=== PATIENT | male | born 1980 | race Hispanic/Latino ===

== ENCOUNTER 2019-09-15 17:00 | Emergency (ER) | payer OTHER ==
[2019-09-15 18:13] LABS: BASOPHILS % (AUTO) 0.8 % (0.0-5.0); EOSINOPHILS % (AUTO) 1.6 % (0.0-8.0); HEMATOCRIT 42.6 % (42-54); LYMPHOCYTES % (AUTO) 35.2 % (21.0-51.0); MEAN CORPUSCULAR HEMOGLOBIN 30.6 pg (27.0-33.0); MEAN CORPUSCULAR HGB CONC 34.5 g/dL (32.0-36.0); MEAN CORPUSCULAR VOLUME 88.6 fL (79-99); MONOCYTES % (AUTO) 5.4 % (3.0-13.0); NEUTROPHILS % (AUTO) 56.8 % (40.0-77.0); PLATELET COUNT (AUTO) 391 K/uL (130-400); RED BLOOD CELL COUNT(AUTO) 4.81 MIL/uL (4.50-6.20); RED CELL DISTRIBUTION WIDTH 12.3 % (11.0-15.5); WHITE BLOOD COUNT (AUTO) 8.8 K/uL (4.8-10.8)
[2019-09-15 18:33] LABS: CREATININE 0.9 mg/dL (0.5-1.5); POTASSIUM 3.3 mmol/L (3.5-5.1)
[2019-09-15 18:52] LABS: BILIRUBIN,TOTAL 0.3 mg/dL (0.2-1.0)
== END 2019-09-15 19:34 | disposition home or self-care (01) ==
LOC: EDH 17:00
DX: R42 Dizziness and giddiness (principal)
CPT/HCPCS: 36415; 80053; 84484; 85025; 93005

== ENCOUNTER 2020-03-09 23:25 | Emergency (ER) | payer OTHER ==
[2020-03-09 23:49] LABS: BASOPHILS % (AUTO) 0.7 % (0.0-5.0); EOSINOPHILS % (AUTO) 3.1 % (0.0-8.0); HEMATOCRIT 40.1 % (42-54); LYMPHOCYTES % (AUTO) 45.8 % (21.0-51.0); MEAN CORPUSCULAR HGB CONC 34.2 g/dL (32.0-36.0); MEAN CORPUSCULAR VOLUME 87.9 fL (79-99); MONOCYTES % (AUTO) 6.8 % (3.0-13.0); NEUTROPHILS % (AUTO) 43.4 % (40.0-77.0); PLATELET COUNT (AUTO) 367 K/uL (130-400); RED BLOOD CELL COUNT(AUTO) 4.56 MIL/uL (4.50-6.20); RED CELL DISTRIBUTION WIDTH 12.5 % (11.0-15.5)
[2020-03-10 00:01] LABS: CREATININE 0.9 mg/dL (0.5-1.5); POTASSIUM 3.5 mmol/L (3.5-5.1)
[2020-03-10 00:07] LABS: ALBUMIN 3.9 g/dL (3.5-5.0); BILIRUBIN,TOTAL 0.4 mg/dL (0.2-1.0); TOTAL PROTEIN, SERUM 7.8 g/dL (6.0-8.3)
[2020-03-10] MEDS ORDERED: METOCLOPRAMIDE 10 MG/2 ML VIAL ONE (01:06)
[2020-03-10] MEDS ORDERED: ONDANSETRON HCL 4 MG/2 ML VIAL ONE ×2 (01:06→01:15)
[2020-03-10] MEDS ORDERED: PANTOPRAZOLE 40 MG/VIAL ONE ×2 (01:07→01:15)
[2020-03-10] MEDS ORDERED: FAMOTIDINE/PF 20 MG/2 ML VIAL IV ONE ×2 (01:07→01:15)
[2020-03-10] MEDS ORDERED: ASPIRIN 325MG EC TAB 325 MG TABLET.DR PO ONE (01:08)
[2020-03-10 01:13] LABS: INR 0.99 (0.85-1.15); PROTHROMBIN TIME 10.6 SEC (9.6-11.6)
[2020-03-10 01:14] LABS: PARTIAL THROMBOPLASTIN TIME 32.3 SEC (26.3-35.5)
[2020-03-10 01:27] LABS: RAPID GROUP A STREP NEGATIVE (NEGATIVE)
[2020-03-10 02:17] LABS: AMPHET/METH SCREEN,URINE NEGATIVE (NEGATIVE); BARBITURATE SCREEN, URINE NEGATIVE (NEGATIVE); BENZODIAZEPINES SCREEN,URINE NEGATIVE (NEGATIVE); CANNABINOID SCREEN,URINE NEGATIVE (NEGATIVE); COCAINE SCREEN,URINE NEGATIVE (NEGATIVE); OPIATE SCREEN,URINE NEGATIVE (NEGATIVE); PHENCYCLIDINE SCREEN,URINE NEGATIVE (NEGATIVE)
== END 2020-03-10 01:46 | disposition home or self-care (01) ==
LOC: EDH 23:25
DX: K29.00 Acute gastritis without bleeding (principal); Z20.828 Contact with and (suspected) exposure to other viral communicable diseases; Z87.891 Personal history of nicotine dependence
CPT/HCPCS: 36415 ×2; 71045; 80053; 80305; 82550; 83605; 83690; 84484; 85025; 85610; 85730; 87040 ×2; 87426; 87804 ×2; 87880; 93005; 96374; 96375; 99285; C9113 ×2; J2405 ×2; J2765; J3490 ×2; U0003

== ENCOUNTER 2020-04-17 23:45 | Emergency (ER) | payer OTHER ==
[2020-04-18] MEDS ORDERED: PANTOPRAZOLE 40 MG/VIAL ONE (01:21)
[2020-04-18] MEDS ORDERED: LIDOCAINE HCL 2% VISCOUS 15 ML UDCUP ONE (01:22)
[2020-04-18] MEDS ORDERED: MAGNESIUM HYDROXIDE 30 ML/UDCUP ONE (01:22)
[2020-04-18 01:25] LABS: HEMATOCRIT 40.8 % (42-54); MEAN CORPUSCULAR HEMOGLOBIN 30.6 pg (27.0-33.0); MEAN CORPUSCULAR HGB CONC 34.3 g/dL (32.0-36.0); MEAN CORPUSCULAR VOLUME 89.3 fL (79-99); PLATELET COUNT (AUTO) 414 K/uL (130-400); RED BLOOD CELL COUNT(AUTO) 4.57 MIL/uL (4.50-6.20); RED CELL DISTRIBUTION WIDTH 12.6 % (11.0-15.5); WHITE BLOOD COUNT (AUTO) 12.2 K/uL (4.8-10.8)
[2020-04-18 01:37] LABS: BASOPHILS % (AUTO) 0.7 % (0.0-5.0); CREATININE 0.8 mg/dL (0.5-1.5); EOSINOPHILS % (AUTO) 0.1 % (0.0-8.0); LYMPHOCYTES % (AUTO) 11.1 % (21.0-51.0); MONOCYTES % (AUTO) 3.8 % (3.0-13.0); POTASSIUM 3.8 mmol/L (3.5-5.1)
[2020-04-18 01:42] LABS: ALBUMIN 4.4 g/dL (3.5-5.0); BILIRUBIN,TOTAL 1.1 mg/dL (0.2-1.0); TOTAL PROTEIN, SERUM 8.8 g/dL (6.0-8.3)
== END 2020-04-18 02:13 | disposition home or self-care (01) ==
LOC: EDH 23:45
DX: K29.00 Acute gastritis without bleeding (principal); Z79.899 Other long term (current) drug therapy
CPT/HCPCS: 36415; 80053; 84484; 85025; 93005; 96374; 99284; C9113

== ENCOUNTER 2020-10-19 21:53 | Emergency (ER) | payer OTHER ==
[~2020-10-19] VITALS: Ht 162.6 cm; Wt 54.4 kg
[2020-10-19 21:57] VITALS: BP 146/99
[2020-10-19] MEDS ORDERED: OMEP20CA12 PO (22:02)
[2020-10-19 22:13] LABS: HEMATOCRIT 39.4 % (42-54); MEAN CORPUSCULAR HEMOGLOBIN 29.9 pg (27.0-33.0); MEAN CORPUSCULAR HGB CONC 33.8 g/dL (32.0-36.0); MEAN CORPUSCULAR VOLUME 88.5 fL (79-99); RED BLOOD CELL COUNT(AUTO) 4.45 MIL/uL (4.50-6.20); RED CELL DISTRIBUTION WIDTH 12.7 % (11.0-15.5); WHITE BLOOD COUNT (AUTO) 7.8 K/uL (4.8-10.8)
[2020-10-19 22:23] LABS: CREATININE 0.7 mg/dL (0.5-1.5); POTASSIUM 3.6 mmol/L (3.5-5.1)
[2020-10-19 22:28] LABS: BILIRUBIN,TOTAL 0.7 mg/dL (0.2-1.0)
[2020-10-19] MEDS ORDERED: FAMOTIDINE 20MG VIAL IV ONE (22:30)
[2020-10-19] MEDS ORDERED: ONDANSETRON 4MG INJ IVP ONE (22:30)
[2020-10-19] MEDS ORDERED: PANTOPRAZOLE 40 MG/VIAL IVP ONE (22:30)
[2020-10-19] MEDS ORDERED: METOCLOPRAMIDE 10 MG/2 ML VIAL IVP ONE (22:30)
[2020-10-20] MEDS ORDERED: MELO7.5T12 PO (00:09)
[2020-10-20] MEDS ORDERED: CYCL10TA7 PO (00:09)
[2020-10-20] MEDS ORDERED: METO-296 PO (00:09)
[2020-10-20 00:13] VITALS: BP 105/55
== END 2020-10-20 00:22 | disposition home or self-care (01) ==
LOC: EDH 21:53
DX: R07.89 Other chest pain (principal); R42 Dizziness and giddiness; K21.9 Gastro-esophageal reflux disease without esophagitis; J45.909 Unspecified asthma, uncomplicated; Z79.1 Long term (current) use of non-steroidal anti-inflammatories (NSAID); Z79.899 Other long term (current) drug therapy
CPT/HCPCS: 36415; 71046; 80053; 83690; 84484; 85027; 93005; 96374; 96375; 99285; C9113; J2405; J2765; J3490

== ENCOUNTER 2020-11-27 20:37 | Emergency (ER) | payer SELFPAY ==
[~2020-11-27] VITALS: Ht 162.6 cm; Wt 52.2 kg
[~2020-11-27 20:37] MED LIST: CYCL10TA7 PO; MELO7.5T12 PO; METO-296 PO; OMEP20CA12 PO
[2020-11-27 20:42] VITALS: BP 115/78
[2020-11-27] MEDS ORDERED: TETANUS/DIPHTHERIA TOXOID [ADULT] 0.5 ML VIAL IM ONE ×2 (21:30→21:49)
[2020-11-27] MEDS ORDERED: CEPHALEXIN 500 MG CAPSULE PO ONE (21:30)
[2020-11-27] MEDS ORDERED: LIDOCAINE HCL 1% 20 ML VIAL INJ SCH (21:30)
[2020-11-27] MEDS ORDERED: CEPHALEXIN 500 MG CAPSULE ONE (21:47)
[2020-11-27] MEDS ORDERED: CEPH250 PO (21:49)
[2020-11-27] MEDS ORDERED: NEOMY SULF/BACITRA/POLYMYXIN B 1 EACH PACKET TP ONE (22:00)
[2020-11-27 22:01] VITALS: BP 118/80
== END 2020-11-27 22:06 | disposition home or self-care (01) ==
LOC: EDH 20:37
DX: S61.412A Laceration without foreign body of left hand, initial encounter (principal); Z79.1 Long term (current) use of non-steroidal anti-inflammatories (NSAID); Z79.899 Other long term (current) drug therapy; F17.200 Nicotine dependence, unspecified, uncomplicated; W26.0XXA Contact with knife, initial encounter; Y93.89 Activity, other specified; Y92.89 Other specified places as the place of occurrence of the external cause; Y99.8 Other external cause status
CPT/HCPCS: 12002; 90471; 90714

== ENCOUNTER 2022-07-21 14:49 | Emergency (ER) | payer BC ==
[~2022-07-21] VITALS: Ht 160 cm; Wt 56.7 kg
[~2022-07-21 14:49] MED LIST changes: +CEPH250 PO; +CYCL-309 PO; -CYCL10TA7 PO
[2022-07-21 15:29] LABS: MEAN CORPUSCULAR HEMOGLOBIN 30.2 pg (27.0-33.0); MEAN CORPUSCULAR VOLUME 86.4 fL (79-99); RED BLOOD CELL COUNT(AUTO) 4.63 MIL/uL (4.50-6.20); RED CELL DISTRIBUTION WIDTH 12.5 % (11.0-15.5); WHITE BLOOD COUNT (AUTO) 8.3 K/uL (4.8-10.8)
[2022-07-21 15:33] LABS: APPEARANCE,URINE CLEAR (CLEAR); BILIRUBIN,URINE NEGATIVE (NEGATIVE); COLOR,URINE LIGHT-YELLOW (YELLOW); GLUCOSE, URINE (UA) NEGATIVE (NEGATIVE); KETONES,URINE 5 mg/dL (NEGATIVE); LEUKOCYTE ESTERASE ,URINE NEGATIVE Leu/uL (NEGATIVE); NITRATE,URINE NEGATIVE (NEGATIVE); OCCULT BLOOD,URINE SMALL (NEGATIVE); PH,URINE 6.5 (5.0-8.0); PROTEIN,URINE NEGATIVE (NEGATIVE); UROBILINOGEN,URINE 0.2 mg/dL (0.2-1.0)
[2022-07-21 15:39] LABS: WBC,URINE 0-1 /HPF (0-1)
[2022-07-21 15:41] LABS: AMPHET/METH SCREEN,URINE NEGATIVE (NEGATIVE); BARBITURATE SCREEN, URINE NEGATIVE (NEGATIVE); BENZODIAZEPINES SCREEN,URINE NEGATIVE (NEGATIVE); CANNABINOID SCREEN,URINE NEGATIVE (NEGATIVE); COCAINE SCREEN,URINE NEGATIVE (NEGATIVE); OPIATE SCREEN,URINE NEGATIVE (NEGATIVE); PHENCYCLIDINE SCREEN,URINE NEGATIVE (NEGATIVE)
[2022-07-21 15:45] LABS: CREATININE 0.8 mg/dL (0.5-1.5); POTASSIUM 3.5 mmol/L (3.5-5.1)
[2022-07-21] MEDS ORDERED: IBUP-2070 PO (16:23)
[2022-07-21 16:36] VITALS: BP 144/86
== END 2022-07-21 16:35 | disposition home or self-care (01) ==
LOC: EDH 14:49
DX: R51.9 Headache, unspecified (principal); F17.200 Nicotine dependence, unspecified, uncomplicated; Z79.1 Long term (current) use of non-steroidal anti-inflammatories (NSAID)
CPT/HCPCS: 36415; 80053; 80305; 81001; 85027

== ENCOUNTER 2023-05-07 00:25 | Emergency (ER) | payer BC ==
[~2023-05-07] VITALS: Ht 162.6 cm; Wt 54.4 kg
[~2023-05-07 00:25] MED LIST changes: +IBUP-2070 PO
[2023-05-07 00:39] LABS: BASOPHILS # (AUTO) 0.07 K/uL (0.00-0.20); BASOPHILS % (AUTO) 0.5 % (0.0-5.0); EOSINOPHILS # (AUTO) 0.16 K/uL (0.00-0.70); EOSINOPHILS % (AUTO) 1.1 % (0.0-8.0); HEMATOCRIT 40.5 % (42-54); IMMATURE GRANULOCYTE ABSOLUTE 0.05 K/uL (0-1); LYMPHOCYTES # (AUTO) 3.1 K/uL (1.0-4.8); LYMPHOCYTES % (AUTO) 21.9 % (21.0-51.0); MEAN CORPUSCULAR HEMOGLOBIN 30.3 pg (27.0-33.0); MEAN CORPUSCULAR HGB CONC 34.1 g/dL (32.0-36.0); MONOCYTES # (AUTO) 0.8 K/uL (0.1-1.0); MONOCYTES % (AUTO) 5.3 % (3.0-13.0); NEUTROPHILS % (AUTO) 70.8 % (40.0-77.0); PLATELET COUNT (AUTO) 344 K/uL (130-400); RED BLOOD CELL COUNT(AUTO) 4.55 MIL/uL (4.50-6.20); RED CELL DISTRIBUTION WIDTH 12.4 % (11.0-15.5); WHITE BLOOD COUNT (AUTO) 14.1 K/uL (4.8-10.8)
[2023-05-07 00:50] LABS: CREATININE 0.9 mg/dL (0.5-1.5); POTASSIUM 3.5 mmol/L (3.5-5.1)
[2023-05-07 00:55] LABS: ALBUMIN 4.1 g/dL (3.5-5.0); BILIRUBIN,TOTAL 0.6 mg/dL (0.2-1.0)
[2023-05-07] MEDS: HYDROXYZINE 25 MG TABLET PO ONE (01:24)
[2023-05-07] MEDS: ASPIRIN 325MG TAB PO ONE (01:24)
[2023-05-07] MEDS ORDERED: HYDR50CA50 PO (02:45)
[2023-05-07] MEDS: METOPROLOL TARTRATE 1 MG/ML 5ML VIAL IV ONE (02:46)
[2023-05-07 03:00] VITALS: BP 114/69; PULSE 68; RESP 18; O2SAT 99
== END 2023-05-07 03:01 | disposition home or self-care (01) ==
LOC: EDH 00:25
DX: F41.9 Anxiety disorder, unspecified (principal)
CPT/HCPCS: 99284; 71045; 84484 ×3; 80053; 85025; 36415; 93005 ×2; J3490

== ENCOUNTER 2023-09-26 12:40 | Emergency (ER) | payer BC ==
[~2023-09-26] VITALS: Ht 162.6 cm; Wt 54.4 kg
[~2023-09-26 12:40] MED LIST changes: +HYDR50CA50 PO
[2023-09-26 13:45] LABS: HEMATOCRIT 41.3 % (42-54); MEAN CORPUSCULAR HEMOGLOBIN 30.2 pg (27.0-33.0); MEAN CORPUSCULAR HGB CONC 34.4 g/dL (32.0-36.0); MEAN CORPUSCULAR VOLUME 87.9 fL (79-99); RED BLOOD CELL COUNT(AUTO) 4.7 MIL/uL (4.50-6.20); RED CELL DISTRIBUTION WIDTH 12.7 % (11.0-15.5); WHITE BLOOD COUNT (AUTO) 10.2 K/uL (4.8-10.8)
[2023-09-26 14:10] LABS: CREATININE 0.9 mg/dL (0.5-1.3); POTASSIUM 3.8 mmol/L (3.5-5.1)
[2023-09-26 14:45] VITALS: BP 142/85; PULSE 66; RESP 14; O2SAT 100
[2023-09-26 15:03] LABS: AMPHET/METH SCREEN,URINE NEGATIVE (NEGATIVE); BARBITURATE SCREEN, URINE NEGATIVE (NEGATIVE); BENZODIAZEPINES SCREEN,URINE NEGATIVE (NEGATIVE); CANNABINOID SCREEN,URINE NEGATIVE (NEGATIVE); COCAINE SCREEN,URINE NEGATIVE (NEGATIVE); OPIATE SCREEN,URINE NEGATIVE (NEGATIVE); PHENCYCLIDINE SCREEN,URINE NEGATIVE (NEGATIVE)
== END 2023-09-26 15:02 | disposition home or self-care (01) ==
LOC: EDH 12:40
DX: R00.2 Palpitations (principal); R42 Dizziness and giddiness; R25.1 Tremor, unspecified; F41.9 Anxiety disorder, unspecified; F17.200 Nicotine dependence, unspecified, uncomplicated; Z79.899 Other long term (current) drug therapy; Z79.2 Long term (current) use of antibiotics; Z98.890 Other specified postprocedural states
CPT/HCPCS: 36415; 71045; 80048; 80305; 84484; 85027; 93005

== ENCOUNTER 2024-04-12 12:11 | Emergency (ER) | payer BC ==
[~2024-04-12] VITALS: Ht 162.6 cm; Wt 54.4 kg
[2024-04-12] MEDS: mecliZINE HCL 25 MG TABLET PO STA (13:18)
[2024-04-12 13:20] LABS: BASOPHILS # (AUTO) 0.04 K/uL (0.00-0.20); BASOPHILS % (AUTO) 0.5 % (0.0-5.0); EOSINOPHILS # (AUTO) 0.08 K/uL (0.00-0.70); EOSINOPHILS % (AUTO) 1.1 % (0.0-8.0); HEMATOCRIT 41.5 % (42-54); IMMATURE GRANULOCYTE ABSOLUTE 0.02 K/uL (0-1); LYMPHOCYTES # (AUTO) 2.2 K/uL (1.0-4.8); LYMPHOCYTES % (AUTO) 28.8 % (21.0-51.0); MEAN CORPUSCULAR HEMOGLOBIN 30.5 pg (27.0-33.0); MEAN CORPUSCULAR VOLUME 89.6 fL (79-99); MONOCYTES # (AUTO) 0.5 K/uL (0.1-1.0); MONOCYTES % (AUTO) 6.6 % (3.0-13.0); NEUTROPHILS # (AUTO) 4.7 K/uL (1.8-7.7); NEUTROPHILS % (AUTO) 62.7 % (40.0-77.0); PLATELET COUNT (AUTO) 367 K/uL (130-400); RED BLOOD CELL COUNT(AUTO) 4.63 MIL/uL (4.50-6.20); RED CELL DISTRIBUTION WIDTH 13.1 % (11.0-15.5); WHITE BLOOD COUNT (AUTO) 7.5 K/uL (4.8-10.8)
[2024-04-12] MEDS: 0.9%NACL 1000ML 1,000 ML IV STA (13:22)
[2024-04-12 13:29] LABS: CREATININE 0.7 mg/dL (0.5-1.3); POTASSIUM 3.4 mmol/L (3.5-5.1)
[2024-04-12 13:42] LABS: AMPHET/METH SCREEN,URINE NEGATIVE (NEGATIVE); BARBITURATE SCREEN, URINE NEGATIVE (NEGATIVE); BENZODIAZEPINES SCREEN,URINE NEGATIVE (NEGATIVE); CANNABINOID SCREEN,URINE NEGATIVE (NEGATIVE); COCAINE SCREEN,URINE NEGATIVE (NEGATIVE); OPIATE SCREEN,URINE NEGATIVE (NEGATIVE); PHENCYCLIDINE SCREEN,URINE NEGATIVE (NEGATIVE)
[2024-04-12] MEDS ORDERED: MECL-302 PO (13:54)
--- NOTE | 2024-04-12 13:56 | ERN ---
ED Note History of Present Illness Stated Complaint: DIIZZYNESS,NAUSEA Chief Complaint: Dizzy/Light Headed Time Seen by MD: 12:16 Time Seen by Midlevel: 12:20 Dictation: 33-year-old male with no past medical history coming in with complaining of dizziness and feeling lightheaded that started at 6:00 a.m.. Patient states he has been sick recently for cough congestion that was two weeks ago with states it is slowly getting better. Denies having any fevers, nausea, vomiting, chest pain or chest discomfort. Denies having any numbness, weakness, tingling. Allergies: Coded Allergies: No Known Drug Allergies (Unverified Allergy, Unknown, 10/19/20) Home Meds Active Scripts Hydroxyzine Pamoate (Hydroxyzine Pamoate) 50 Mg Capsule, 50 MG PO QIDP PRN for ANXIETY/AGITATION, #40 CAP 2 Refills Prov:HSERWIN WANG Sr., MD 05/07/23 Ibuprofen (Ibuprofen) 600 Mg Tablet, 600 MG PO Q6H PRN for PAIN, #30 TAB Prov:MARY BRITO MD 07/21/22 Cephalexin Monohydrate (Keflex) 250 Mg Cap, 250 MG PO BID for 7 Days, #14 CAP 0 Refills Prov:VITO LEAL MD 11/27/20 Metoclopramide HCl (Reglan) 10 Mg Tablet, 10 MG PO TIDP, #20 TAB 0 Refills Prov:VITO LEAL MD 10/20/20 Meloxicam (Mobic) 7.5 Mg Tablet, 7.5 MG PO DAILY, #10 TAB 0 Refills Prov:VITO LEAL MD 10/20/20 Cyclobenzaprine HCl (Cyclobenzaprine HCl) 10 Mg Tablet, 10 MG PO TIDP, #20 TAB 0 Refills Prov:VITO LEAL MD 10/20/20 Reported Medications Omeprazole (Omeprazole) 20 Mg Capsule.dr, 20 MG PO DAILY, CAP 10/19/20 Past Medical History Past Medical History: Anxiety Additional Past Medical Hx: GASTRITIS, HEART MURMUR A CHILD Surgical History: Other Surgical History Other: NASAL SURGERY A CHILD 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, ETOH Review of System Dictation Constitutional: Negative for fever,chills, and weight loss Eyes: Negative for injury, pain,redness, and discharge ENT: Negative for injury,pain or swelling Cardiovascular: Negative for chest pain, palpitations, and edema Respiratory: Negative for shortness of breath, cough, and wheezing, Abdomen/GI: Negative for abdominal pain, nausea, vomiting, diarrhea, and constipation Back: Negative for injury and pain : Negative for injury, bleeding and discharge MS/Extremity: Negative for injury and deformity Skin: Negative for rash, and discoloration Neuro: Negative for headache, weakness, numbness, tingling, and seizure complaining of dizziness is slowly improving Psych: Negative for suicide ideation, homicidal ideation, and hallucinations Review of Systems: was completed Initial Vital Sign VS Vital Signs Date Time Temp Pulse Resp B/P (MAP) Pulse Ox O2 Delivery O2 Flow Rate FiO2 04/12/24 12:32 98.2 70 20 122/86 99 Room Air Physical Exam Dictation General: awake, alert, NAD Head/Face: Normocephalic, atraumatic Eyes: PERRL, EOMI, vision at baseline ENT: oral cavity clear, TMs clear, no signs of infection Neck: Trachea midline, supple, no nuchal rigidity Cardiovascular: RRR, normal S1/S2, No MRGs, no JVD Respiratory: CTAB, no respiratory distress, No rales or wheezes Abdomen: Soft, non-tender, non-distended, normal bowel sounds, no guarding or rebound. Skin: Warm, dry, normal turgor, no rash MS/Extremity: Pulses equal, no cyanosis, neurovascular intact, FROM Neuro: COAx4, GCS 15, strength 5/5, CN 2-12 intact, normal cerebellar exam, normal gait, Psych: Normal behavior, mood, and affect normal Results (Laboratory/Radiology) Laboratory/Radiology Laboratory Tests Test 04/12/24 13:10 04/12/24 13:11 Urine Opiates Screen NEGATIVE (NEGATIVE) Urine Barbiturates Screen NEGATIVE (NEGATIVE) Urine Phencyclidine Screen NEGATIVE (NEGATIVE) Urine Amphetamines Screen NEGATIVE (NEGATIVE) Urine Benzodiazepines Screen NEGATIVE (NEGATIVE) Urine Cocaine Screen NEGATIVE (NEGATIVE) Urine Marijuana (THC) Screen NEGATIVE (NEGATIVE) White Blood Count 7.5 K/uL (4.8-10.8) Red Blood Count 4.63 MIL/uL (4.50-6.20) Hemoglobin 14.1 g/dL (14.0-18.0) Hematocrit 41.5 % (42-54) L Mean Corpuscular Volume 89.6 fL (79-99) Mean Corpuscular Hemoglobin 30.5 pg (27.0-33.0) Mean Corpuscular Hemoglobin Concent 34.0 g/dL (32.0-36.0) Red Cell Distribution Width 13.1 % (11.0-15.5) Platelet Count 367 K/uL (130-400) Mean Platelet Volume 8.5 fL (7.5-10.5) Immature Granulocyte % (Auto) 0.3 % (0-1) Neutrophils (%) (Auto) 62.7 % (40.0-77.0) Lymphocytes (%) (Auto) 28.8 % (21.0-51.0) Monocytes (%) (Auto) 6.6 % (3.0-13.0) Eosinophils (%) (Auto) 1.1 % (0.0-8.0) Basophils (%) (Auto) 0.5 % (0.0-5.0) Neutrophils # (Auto) 4.7 K/uL (1.8-7.7) Lymphocytes # (Auto) 2.2 K/uL (1.0-4.8) Monocytes # (Auto) 0.5 K/uL (0.1-1.0) Eosinophils # (Auto) 0.08 K/uL (0.00-0.70) Basophils # (Auto) 0.04 K/uL (0.00-0.20) Absolute Immature Granulocyte (auto 0.02 K/uL (0-1) Nucleated Red Blood Cells 0.0 % (0.0-0.19) Sodium Level 137 mmol/L (136-145) Potassium Level 3.4 mmol/L (3.5-5.1) L Chloride Level 100 mmol/L (101-111) L Carbon Dioxide Level 30 mmol/L (21-32) Blood Urea Nitrogen 10 mg/dL (7-18) Creatinine 0.7 mg/dL (0.5-1.3) Glomerular Filtration Rate Calc 117 mL/min (>90) Random Glucose 91 mg/dL (70-105) Total Calcium 8.6 mg/dL (8.5-10.1) Troponin I High Sensitivity 12 ng/L (4-75) Labs Reviewed?: Yes EKG Comment: EKG read sinus rhythm, ST elevation probably normal early repolarization pattern, with a rate of 67. No STEMI interpreted by ER MD ED Course ED Course Orders Procedure Category Date Status Time Cbc With Differential LAB 04/12/24 Complete 12:34 Basic Metabolic Panel LAB 04/12/24 Complete 12:34 Troponin I High LAB 04/12/24 Complete Sensitivity 12:34 12 Lead Ekg Tracing- EKG 04/12/24 Logged Technical 12:34 Drug Screen Urine LAB 04/12/24 Complete 12:34 0.9%Nacl 1000ml (Ns PHA 04/12/24 Complete 1000ml) 12:34 Meclizine Hcl 25 Mg PHA 04/12/24 Complete (Antivert 25 Mg) 12:34 Current Medications Medications (Trade) Dose Ordered Sig/Monica Route PRN Reason Start Time Stop Time Status Last Admin Dose Admin Meclizine HCl (ANTIvert 25 mg) 25 mg ONCE STAT PO 04/12/24 12:34 04/12/24 12:37 DC 04/12/24 13:18 Sodium Chloride 1,000 ml @ 1,000 mls/hr Q1H STAT IV 04/12/24 12:34 04/12/24 13:33 DC 04/12/24 13:22 Vital Signs Date Time Temp Pulse Resp B/P (MAP) Pulse Ox O2 Delivery O2 Flow Rate FiO2 04/12/24 12:32 98.2 70 20 122/86 99 Room Air Medical Decision Making MDM MDM: 33-year-old male with no past medical history coming in with complaining of dizziness and feeling lightheaded that started at 6:00 a.m.. Patient states he has been sick recently for cough congestion that was two weeks ago with states it is slowly getting better. Denies having any fevers, nausea, vomiting, chest pain or chest discomfort. Denies having any numbness, weakness, tingling. Blood work is unremarkable only mild hypokalemia at 3.4. On reassessment after fluids and meclizine patient states he feels much better and is not dizzy any longer. Discussed with the patient he needs to stay hydrated, increase his electrolytes, and follow up with his PCP in 1-2 days. Patient verbalized understanding, answered all questions. Differential diagnosis: Vertigo, otitis media, dehydration, electrolyte abnormality Rationale: Tests considered and ordered secondary to shared decision making include: Previous outside records reviewed: Old ER visits. Risk of complication and/or morbidity or mortality of patient management: None Medications-Per medication reconciliation Need for hospitalization: Patient does not meet criteria for hospitalization. Need for emergency major/minor surgery: No There are no social concerns with this patient. Prescription drug management Prescriptions will include symptomatic care Patient's prior external medical records from other ER visits were reviewed by me as indicated. Prior testing and results from previous visits were reviewed. Prior tests were taken into account with medical decision making and resource utilization, independent historian/historians were used to obtain complete medical history. I independently interpreted the test that were performed, results were reviewed by me and considered findings on radiology if ordered. Medical management and examination interpretation discussions were had by me with other qualified healthcare professionals as indicated for the patient's care. DX & DISP Disposition: Discharge Departure Impression: Primary Impression: Vertigo Condition: Stable Scripts Meclizine HCl (Meclizine HCl) 25 Mg Tablet 25 MG PO TID for vertigo, #30 TAB 0 Refills Prov: ALEXIS FREITAS NP 04/12/24 Referrals: NONE (PCP) I have reviewed the case, and I agree with, Diagnosis and Plan ALEXIS FREITAS NP Apr 12, 2024 13:56
[2024-04-12 14:15] VITALS: BP 123/79; PULSE 69; RESP 20; TEMP 98.4; O2SAT 99
--- NOTE | 2024-04-12 15:15 | EKG ---
[facility] Test Date: 2024-04-12 Test Time: 12:42:57 Pat Name: ROBB RODRIGUEZ Department: [facility] Room: Gender: M Logistics Lead: [id number] : 1980 Requested By: ALEXIS FREITAS Order Number: [id number] Reading MD: Adarsh Randhawa Measurements Intervals [place] Rate: 67 P: 67 VT: 149 QRS: 78 QRSD: 82 T: 70 QT: 403 QTc: 425 Interpretive Statements Sinus rhythm ST elev, probable normal early repol pattern Compared to ECG 09/26/2023 12:43:51 No significant changes Electronically Signed On 04-13-2024 17:06:50 CAN [employer]ACKER by Adarsh Randhawa Please click the below link to view image of tracing.
== END 2024-04-12 14:22 | disposition home or self-care (01) ==
LOC: EDH 12:11
DX: R42 Dizziness and giddiness (principal); F17.200 Nicotine dependence, unspecified, uncomplicated; F41.9 Anxiety disorder, unspecified; Z79.1 Long term (current) use of non-steroidal anti-inflammatories (NSAID); Z79.899 Other long term (current) drug therapy
CPT/HCPCS: 99284; 96360; 84484; 80048; 80305; 85025; 36415; 93005; J7030

== ENCOUNTER 2024-08-21 02:37 | Emergency (ER) | payer BC ==
[~2024-08-21] VITALS: Ht 162.6 cm; Wt 54.4 kg
[~2024-08-21 02:37] MED LIST changes: +MECL-302 PO
[2024-08-21 02:57] LABS: BASOPHILS # (AUTO) 0.07 K/uL (0.00-0.20); BASOPHILS % (AUTO) 0.5 % (0.0-5.0); EOSINOPHILS # (AUTO) 0.06 K/uL (0.00-0.70); EOSINOPHILS % (AUTO) 0.5 % (0.0-8.0); HEMATOCRIT 38.8 % (42-54); IMMATURE GRANULOCYTE ABSOLUTE 0.04 K/uL (0-1); LYMPHOCYTES # (AUTO) 1.5 K/uL (1.0-4.8); LYMPHOCYTES % (AUTO) 11.3 % (21.0-51.0); MEAN CORPUSCULAR HEMOGLOBIN 30.9 pg (27.0-33.0); MEAN CORPUSCULAR HGB CONC 34.8 g/dL (32.0-36.0); MEAN CORPUSCULAR VOLUME 88.8 fL (79-99); MONOCYTES # (AUTO) 0.5 K/uL (0.1-1.0); MONOCYTES % (AUTO) 3.8 % (3.0-13.0); NEUTROPHILS # (AUTO) 11.1 K/uL (1.8-7.7); NEUTROPHILS % (AUTO) 83.6 % (40.0-77.0); PLATELET COUNT (AUTO) 342 K/uL (130-400); RED BLOOD CELL COUNT(AUTO) 4.37 MIL/uL (4.50-6.20); RED CELL DISTRIBUTION WIDTH 12.6 % (11.0-15.5); WHITE BLOOD COUNT (AUTO) 13.3 K/uL (4.8-10.8)
[2024-08-21 03:11] LABS: CREATININE 0.8 mg/dL (0.5-1.3)
[2024-08-21 03:15] LABS: POTASSIUM 2.9 mmol/L (3.5-5.1)
--- NOTE | 2024-08-21 03:26 | ERN ---
General Chief Complaint: Palpitations Stated Complaint: PALPITATIONS Time Seen by MD: 02:40 History of Present Illness Initial Comments 43-year-old male who presents for palpitations and anxiety type symptoms. He reports that he was lying in bed after drinking some alcohol, afterwards he began with anxiety and palpitations. No chest pain or shortness of breath. He has been in his otherwise normal state of health. He reports smoking THC earlier in the day but no other drug use. He does report a history of anxiety. Allergies: Coded Allergies: No Known Drug Allergies (Unverified Allergy, Unknown, 10/19/20) Home Meds Active Scripts Meclizine HCl (Meclizine HCl) 25 Mg Tablet, 25 MG PO TID for vertigo, #30 TAB 0 Refills Prov:ALEXIS FREITAS NP 04/12/24 Hydroxyzine Pamoate (Hydroxyzine Pamoate) 50 Mg Capsule, 50 MG PO QIDP PRN for ANXIETY/AGITATION, #40 CAP 2 Refills Prov:SHERWIN WANG Sr., MD 05/07/23 Ibuprofen (Ibuprofen) 600 Mg Tablet, 600 MG PO Q6H PRN for PAIN, #30 TAB Prov:MARY BRITO MD 07/21/22 Cephalexin Monohydrate (Keflex) 250 Mg Cap, 250 MG PO BID for 7 Days, #14 CAP 0 Refills Prov:VITO LEAL MD 11/27/20 Metoclopramide HCl (Reglan) 10 Mg Tablet, 10 MG PO TIDP, #20 TAB 0 Refills Prov:VITO LEAL MD 10/20/20 Meloxicam (Mobic) 7.5 Mg Tablet, 7.5 MG PO DAILY, #10 TAB 0 Refills Prov:VITO LEAL MD 10/20/20 Cyclobenzaprine HCl (Cyclobenzaprine HCl) 10 Mg Tablet, 10 MG PO TIDP, #20 TAB 0 Refills Prov:VITO LEAL MD 10/20/20 Reported Medications Omeprazole (Omeprazole) 20 Mg Capsule.dr, 20 MG PO DAILY, CAP 10/19/20 Past Medical History Past Medical History: Anxiety Medical History Other: GASTRITIS, HEART MURMUR A CHILD Past Surgical History: Other Surgical History Other: NASAL SURGERY A CHILD Social History 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, ETOH ROS Dictation CONSTITUTIONAL: No chills, no fever, no weakness, no diaphoresis, no malaise. HEAD/FACE: No signs of trauma. EENT: No eye pain, no blurred vision, no tearing, no double vision, no ear pain, no ear discharge, no nose pain, no nasal congestion, no throat pain, no throat swelling, no mouth pain. RESPIRATORY: No cough, no orthopnea, no SOB, no stridor, no wheezing. CARDIOVASCULAR: Palpitations and anxiety GASTROINTESTINAL/ABDOMINAL: No abdominal pain, no constipation, no diarrhea, no nausea, no vomiting. GENITOURINARY: No abnormal discharge, no dysuria, no frequent urination, no hematuria. No complaints of pain in the genitals. MUSCULOSKELETAL: No back pain, no gout, no joint pain, no joint swelling, no muscle pain, no muscle stiffness, no neck pain. INTEGUMENTARY: No change in color, no change in hair/nails, no dryness, no lesion, no lumps, no rash. NEUROLOGICAL/PSYCH: not depressed, no emotional problem, no headache, no numbness, no pre-existing deficit, no history of seizures, no tremors, no weakness. HEMATOLOGIC/LYMPHATIC: Not anemic, no history of blood clots, no apparent bleeding, no bruising, glands not swollen. All Systems Negative, Except as Noted. Physical Exam Physical Exam Dictation VITAL SIGNS: Reviewed. GENERAL APPEARANCE: Alert, oriented x3, no acute distress, obese. HEAD AND FACE: Non-traumatic. EYES: PERRL, pink conjunctivas, eyelid no trauma, anterior chamber clear. EARS: Pinnas intact and no signs of trauma or erythema. Ear canals clear and no discharge. TMs no erythema. NOSE: No discharge, no bleeding. OROPHARYNX: Mouth normal, teeth no caries, tongue pink. Pharynx clear, no erythema. Tonsils no exudates, no abscesses noted. Mucous membrane moist. NECK: Supple, non-tender, no thyromegaly, no masses, no JVD, no bruits. BREAST: Deferred. CHEST: No tenderness, no crepitus, no paradoxical movement, no retractions. LUNGS: Clear, well-ventilated, symmetric, no rales, no wheezing, no rhonchi, no stridor, good breath sounds bilaterally. HEART: Regular rate, regular rhythm, no murmur, no gallops. VASCULAR: No peripheral edema. ABDOMEN: Soft, positive bowel sounds, nondistended, no guarding, nontender, no rebound, no masses no hepatomegaly, no splenomegaly, no Rosenthal's sign, no hernias. RECTAL: Deferred. GENITAL: Deferred. NEUROLOGICAL: Normal speech, gross motor function intact, gross sensory function intact. MUSCULOSKELETAL: Neck nontender, full range of motion, back nontender, full range of motion. EXTREMITIES: Nontender, full range of motion. SKIN: Color pink, dry, no turgor, no rash, no lacerations, no abrasions, no contusions. LYMPHATICS: Deferred. Results Laboratory and Microbiology Lab and Micro Result Laboratory Tests Test 08/21/24 02:47 White Blood Count 13.3 K/uL (4.8-10.8) H Red Blood Count 4.37 MIL/uL (4.50-6.20) L Hemoglobin 13.5 g/dL (14.0-18.0) L Hematocrit 38.8 % (42-54) L Mean Corpuscular Volume 88.8 fL (79-99) Mean Corpuscular Hemoglobin 30.9 pg (27.0-33.0) Mean Corpuscular Hemoglobin Concent 34.8 g/dL (32.0-36.0) Red Cell Distribution Width 12.6 % (11.0-15.5) Platelet Count 342 K/uL (130-400) Mean Platelet Volume 8.3 fL (7.5-10.5) Immature Granulocyte % (Auto) 0.3 % (0-1) Neutrophils (%) (Auto) 83.6 % (40.0-77.0) H Lymphocytes (%) (Auto) 11.3 % (21.0-51.0) L Monocytes (%) (Auto) 3.8 % (3.0-13.0) Eosinophils (%) (Auto) 0.5 % (0.0-8.0) Basophils (%) (Auto) 0.5 % (0.0-5.0) Neutrophils # (Auto) 11.1 K/uL (1.8-7.7) H Lymphocytes # (Auto) 1.5 K/uL (1.0-4.8) Monocytes # (Auto) 0.5 K/uL (0.1-1.0) Eosinophils # (Auto) 0.06 K/uL (0.00-0.70) Basophils # (Auto) 0.07 K/uL (0.00-0.20) Absolute Immature Granulocyte (auto 0.04 K/uL (0-1) Nucleated Red Blood Cells 0.0 % (0.0-0.19) Sodium Level 137 mmol/L (136-145) Potassium Level 2.9 mmol/L (3.5-5.1) *L Chloride Level 99 mmol/L (101-111) L Carbon Dioxide Level 27 mmol/L (21-32) Blood Urea Nitrogen 12 mg/dL (7-18) Creatinine 0.8 mg/dL (0.5-1.3) Glomerular Filtration Rate Calc 112 mL/min (>90) Random Glucose 130 mg/dL (70-105) H Total Calcium 8.4 mg/dL (8.5-10.1) L Total Creatine Kinase 112 U/L (21-232) Troponin I High Sensitivity 8 ng/L (4-75) MDM CC: Palpitations and anxiety Historian: Patient Comorbidities: None Limitations by social determinants of health: None Initial heart rate was 120 otherwise vital signs stable. This improved in the ER. EKG: Sinus tach rate 120 normal axis good R-wave progression intervals are stable no STEMI. Labs including CBC metabolic panel troponin are unremarkable. Mildly low potassium, we will recommend oral supplementation as an outpatient. Heart score of 0 We will DC likely anxiety ED Course Orders Procedure Category Date Status Time Cbc With Differential LAB 08/21/24 Complete 02:41 Chest 1vw RAD 08/21/24 Logged 02:41 12 Lead Ekg Tracing- EKG 08/21/24 Logged Technical 02:41 Creatine Kinase, Total LAB 08/21/24 Complete 02:41 Troponin I High LAB 08/21/24 Complete Sensitivity 02:41 Basic Metabolic Panel LAB 08/21/24 Complete 02:41 Drug Screen Urine LAB 08/21/24 Logged 02:48 Vital Signs Date Time Temp Pulse Resp B/P (MAP) Pulse Ox O2 Delivery O2 Flow Rate FiO2 08/21/24 03:05 99.0 110 18 128/89 99 Room Air* 0 21 08/21/24 02:37 98.1 138 20 136/89 99 Room Air DX & DISP Disposition: Discharge Departure Impression: Primary Impression: Anxiety Additional Impression: Low blood potassium Condition: Stable Additional Instructions: Your symptoms are likely related to anxiety. Your EKG is unremarkable. Your blood work is unremarkable other than a mildly low potassium. Eat a well-balanced diet and this will correct. Please return to the emergency department if you have any concerns. Referrals: SELF,REFERRAL (PCP) ROBERT MCCLURE DO August 21, 2024 03:26
[2024-08-21 03:37] VITALS: BP 117/78; PULSE 102; RESP 16; TEMP 98.4; O2SAT 98
--- NOTE | 2024-08-21 07:44 | HMCIMG ---
CHEST 1VW HISTORY: Chest pain COMPARISON: 09/26/1999 and FINDINGS: A frontal projection of the chest was obtained. No acute pulmonary infiltrates is seen. The heart is borderline enlarged. Prominent interstitial markings are seen. Degenerative change is seen. No evidence of aortic calcification is seen. IMPRESSION: 1. No acute pulmonary infiltrate is seen.
--- NOTE | 2024-08-21 13:02 | EKG ---
[facility] Test Date: 2024-08-21 Test Time: 02:42:54 Pat Name: ROBB RODRIGUEZ Department: [facility] Room: Gender: M Respooler: [id number] : 1980 Requested By: ROBERT MCCLURE Order Number: [id number] Reading MD: Brendan Hilton Measurements Intervals [place] Rate: 120 P: 69 [place]: 155 QRS: 81 QRSD: 88 T: 31 QT: 327 QTc: 462 Interpretive Statements Sinus tachycardia Compared to ECG 04/12/2024 12:42:57 Sinus rhythm no longer present ST (T wave) deviation no longer present Electronically Signed On 08-23-2024 22:14:04 CDT by Brendan Hilton Please click the below link to view image of tracing.
== END 2024-08-21 03:38 | disposition home or self-care (01) ==
LOC: EDH 02:37
DX: F41.9 Anxiety disorder, unspecified (principal); E87.6 Hypokalemia; F17.200 Nicotine dependence, unspecified, uncomplicated; Z79.1 Long term (current) use of non-steroidal anti-inflammatories (NSAID); Z79.899 Other long term (current) drug therapy; Z87.19 Personal history of other diseases of the digestive system; Z98.890 Other specified postprocedural states
CPT/HCPCS: 36415; 71045; 80048; 82550; 84484; 85025; 93005; 99284

== ENCOUNTER 2024-09-02 19:31 | Emergency (ER) | payer BC ==
[~2024-09-02] VITALS: Ht 162.6 cm; Wt 54.4 kg
[2024-09-02 19:59] LABS: BASOPHILS # (AUTO) 0.05 K/uL (0.00-0.20); BASOPHILS % (AUTO) 0.7 % (0.0-5.0); EOSINOPHILS # (AUTO) 0.11 K/uL (0.00-0.70); EOSINOPHILS % (AUTO) 1.5 % (0.0-8.0); HEMATOCRIT 35.3 % (42-54); IMMATURE GRANULOCYTE ABSOLUTE 0.02 K/uL (0-1); LYMPHOCYTES # (AUTO) 1.9 K/uL (1.0-4.8); LYMPHOCYTES % (AUTO) 26.2 % (21.0-51.0); MEAN CORPUSCULAR HEMOGLOBIN 30.6 pg (27.0-33.0); MEAN CORPUSCULAR HGB CONC 34.3 g/dL (32.0-36.0); MEAN CORPUSCULAR VOLUME 89.1 fL (79-99); MONOCYTES # (AUTO) 0.5 K/uL (0.1-1.0); MONOCYTES % (AUTO) 6.4 % (3.0-13.0); NEUTROPHILS # (AUTO) 4.8 K/uL (1.8-7.7); NEUTROPHILS % (AUTO) 64.9 % (40.0-77.0); PLATELET COUNT (AUTO) 296 K/uL (130-400); RED BLOOD CELL COUNT(AUTO) 3.96 MIL/uL (4.50-6.20); RED CELL DISTRIBUTION WIDTH 12.8 % (11.0-15.5); WHITE BLOOD COUNT (AUTO) 7.3 K/uL (4.8-10.8)
--- NOTE | 2024-09-02 20:02 | ERN ---
ED Note History of Present Illness Stated Complaint: CHEST PAIN THAT RADIATES TO LUE Chief Complaint: Chest Pain Time Seen by MD: 19:49 Dictation: This is a 44-year-old male who is coming into the emergency room with complaints of chest pain that is radiating to the left arm which started around 5:30 p.m.. Per EMS they have given him aspirin 325 and nitro 0.4 and by the time he came to the ER his chest pain was improved. He has had similar chest pains in the past however radiating to the left arm concerned him and he came in for evaluation. He was at work and when he was about to clock out began experiencing pressure in his chest associated with the palpitations. He thought it was his anxiety kicking in and went home and took a shower after which when he laid down he b bindu experiencing similar pressure and radiation to the left arm. Any time he got up to move around the symptoms were worse. No correlation to patient leaning forward. No nausea vomitings diarrhea. No cough sputum or hemoptysis. 99.9 pulse 82 respirations 16 blood pressure 118/76 with a pulse oximetry of 98% on room air His chronic problems include anxiety, gastritis and a heart murmur as a child. He vapes nicotine and also drinks alcohol on the weekends. He denied other recreational drugs. His father had HI and coronary artery bypass surgery in his 50s. No sudden deaths or strokes at a younger age. Strong family history of diabetes hypertension Allergies: Coded Allergies: No Known Drug Allergies (Unverified Allergy, Unknown, 10/19/20) Home Meds Active Scripts Meclizine HCl (Meclizine HCl) 25 Mg Tablet, 25 MG PO TID for vertigo, #30 TAB 0 Refills Prov:ALEXIS FREITAS NP 04/12/24 Hydroxyzine Pamoate (Hydroxyzine Pamoate) 50 Mg Capsule, 50 MG PO QIDP PRN for ANXIETY/AGITATION, #40 CAP 2 Refills Prov:SHERWIN WANG Sr., MD 05/07/23 Ibuprofen (Ibuprofen) 600 Mg Tablet, 600 MG PO Q6H PRN for PAIN, #30 TAB Prov:MARY BRITO MD 07/21/22 Cephalexin Monohydrate (Keflex) 250 Mg Cap, 250 MG PO BID for 7 Days, #14 CAP 0 Refills Prov:VITO LEAL MD 11/27/20 Metoclopramide HCl (Reglan) 10 Mg Tablet, 10 MG PO TIDP, #20 TAB 0 Refills Prov:VITO LEAL MD 10/20/20 Meloxicam (Mobic) 7.5 Mg Tablet, 7.5 MG PO DAILY, #10 TAB 0 Refills Prov:VITO LEAL MD 10/20/20 Cyclobenzaprine HCl (Cyclobenzaprine HCl) 10 Mg Tablet, 10 MG PO TIDP, #20 TAB 0 Refills Prov:VITO LEAL MD 10/20/20 Reported Medications Omeprazole (Omeprazole) 20 Mg Capsule.dr, 20 MG PO DAILY, CAP 10/19/20 Past Medical History Past Medical History: Anxiety Additional Past Medical Hx: GASTRITIS, HEART MURMUR A CHILD Surgical History: Other Surgical History Other: NASAL SURGERY A CHILD 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, 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 Note Reviewed/Agreed w/PFSH: Yes Review of System Dictation Constitutional: Negative for fever,chills, and weight loss Eyes: Negative for injury, pain,redness, and discharge ENT: Negative for injury,pain or swelling Cardiovascular: Positive for chest pain, palpitations, and denies edema Respiratory: Negative for shortness of breath, cough, and wheezing, Abdomen/GI: Negative for abdominal pain, nausea, vomiting, diarrhea, and constipation Back: Negative for injury and pain : Negative for injury, bleeding and discharge MS/Extremity: Negative for injury and deformity Skin: Negative for rash, and discoloration Neuro: Negative for headache, weakness, numbness, tingling, and seizure Psych: Negative for suicide ideation, homicidal ideation, and hallucinations Initial Vital Sign VS Vital Signs Date Time Temp Pulse Resp B/P (MAP) Pulse Ox O2 Delivery O2 Flow Rate FiO2 09/02/24 19:37 99.9 82 16 118/76 98 Room Air 0 09/02/24 19:51 21 Physical Exam Dictation General: awake, alert, NAD generally anxious Head/Face: Normocephalic, atraumatic Eyes: PERRL, EOMI, vision at baseline ENT: oral cavity clear, TMs clear, no signs of infection Neck: Trachea midline, supple, no nuchal rigidity Cardiovascular: RRR, normal S1/S2, No MRGs, no JVD possible pericardial rub Respiratory: CTAB, no respiratory distress, No rales or wheezes Abdomen: Soft, non-tender, non-distended, normal bowel sounds, no guarding or rebound. Skin: Warm, dry, normal turgor, no rash MS/Extremity: Pulses equal, no cyanosis, neurovascular intact, FROM Neuro: COAx4, GCS 15, strength 5/5, CN 2-12 intact, normal cerebellar exam, normal gait, Psych: Normal behavior, mood, and affect normal Extremities-trace edema without any palpable cords, Homans sign is negative Results (Laboratory/Radiology) Laboratory/Radiology Laboratory Tests Test 09/02/24 19:46 09/02/24 21:26 09/02/24 22:03 White Blood Count 7.3 K/uL (4.8-10.8) Red Blood Count 3.96 MIL/uL (4.50-6.20) L Hemoglobin 12.1 g/dL (14.0-18.0) L Hematocrit 35.3 % (42-54) L Mean Corpuscular Volume 89.1 fL (79-99) Mean Corpuscular Hemoglobin 30.6 pg (27.0-33.0) Mean Corpuscular Hemoglobin Concent 34.3 g/dL (32.0-36.0) Red Cell Distribution Width 12.8 % (11.0-15.5) Platelet Count 296 K/uL (130-400) Mean Platelet Volume 8.4 fL (7.5-10.5) Immature Granulocyte % (Auto) 0.3 % (0-1) Neutrophils (%) (Auto) 64.9 % (40.0-77.0) Lymphocytes (%) (Auto) 26.2 % (21.0-51.0) Monocytes (%) (Auto) 6.4 % (3.0-13.0) Eosinophils (%) (Auto) 1.5 % (0.0-8.0) Basophils (%) (Auto) 0.7 % (0.0-5.0) Neutrophils # (Auto) 4.8 K/uL (1.8-7.7) Lymphocytes # (Auto) 1.9 K/uL (1.0-4.8) Monocytes # (Auto) 0.5 K/uL (0.1-1.0) Eosinophils # (Auto) 0.11 K/uL (0.00-0.70) Basophils # (Auto) 0.05 K/uL (0.00-0.20) Absolute Immature Granulocyte (auto 0.02 K/uL (0-1) Nucleated Red Blood Cells 0.0 % (0.0-0.19) Sodium Level 136 mmol/L (136-145) Potassium Level 3.6 mmol/L (3.5-5.1) Chloride Level 102 mmol/L (101-111) Carbon Dioxide Level 28 mmol/L (21-32) Blood Urea Nitrogen 17 mg/dL (7-18) Creatinine 1.0 mg/dL (0.5-1.3) Glomerular Filtration Rate Calc 95 mL/min (>90) Random Glucose 121 mg/dL (70-105) H Total Calcium 8.2 mg/dL (8.5-10.1) L Total Creatine Kinase 104 U/L (21-232) Troponin I High Sensitivity 7 ng/L (4-75) 9 ng/L (4-75) B-Type Natriuretic Peptide 16 pg/mL (0-100) Urine Opiates Screen NEGATIVE (NEGATIVE) Urine Barbiturates Screen NEGATIVE (NEGATIVE) Urine Phencyclidine Screen NEGATIVE (NEGATIVE) Urine Amphetamines Screen NEGATIVE (NEGATIVE) Urine Benzodiazepines Screen NEGATIVE (NEGATIVE) Urine Cocaine Screen NEGATIVE (NEGATIVE) Urine Marijuana (THC) Screen NEGATIVE (NEGATIVE) Labs Reviewed?: Yes X-RAY Comment: REASON: chest pain ORDERING PHYSICIAN: NORY ELIAS MD PROCEDURE: CXR1VW - CHEST 1VW Exam Type: CHEST 1VW Clinical Information: chest pain Comparison: None Findings: The lungs are clear of infiltrates. The heart is normal in size. The bony and soft tissue structures of the chest are unremarkable. Impression: Clear lungs. DICTATED BY: MARIAN DE GUZMAN MD DATE: 09/02/242025 ELECTRONICALLY SIGNED BY: MARIAN DE GUZMAN MD DATE: 09/02/242027 ED Course ED Course Orders Procedure Category Date Status Time Cbc With Differential LAB 09/02/24 Complete 19:51 B-Type Natriuretic LAB 09/02/24 Complete Peptide 19:51 Chest 1vw RAD 09/02/24 Resulted 19:51 12 Lead Ekg Tracing- EKG 09/02/24 Logged Technical 19:51 Creatine Kinase, Total LAB 09/02/24 Complete 19:51 Troponin I High LAB 09/02/24 Complete Sensitivity 19:51 Basic Metabolic Panel LAB 09/02/24 Complete 19:51 Drug Screen Urine LAB 09/02/24 Complete 19:51 Ketorolac PHA 09/02/24 Complete Tromethamine 15mg/Ml 21:00 Troponin I High LAB 09/02/24 Complete Sensitivity 21:52 12 Lead Ekg Tracing- EKG 09/02/24 Logged Technical 21:52 Current Medications Medications (Trade) Dose Ordered Sig/Monica Route PRN Reason Start Time Stop Time Status Last Admin Dose Admin Ketorolac Tromethamine (toRADol) 15 mg ONCE ONCE IV 09/02/24 21:00 09/02/24 21:01 DC 09/02/24 21:01 Vital Signs Date Time Temp Pulse Resp B/P (MAP) Pulse Ox O2 Delivery O2 Flow Rate FiO2 09/02/24 22:09 98.8 71 16 108/68 98 Room Air* 0 09/02/24 20:40 71 16 121/72 99 Room Air* 0 09/02/24 19:51 98.8 74 18 112/74 98 Room Air* 0 09/02/24 19:37 99.9 82 16 118/76 98 Room Air 0 We will perform diagnostic labs, advanced imaging and administer medications according to the patient's complaint. Once the results are available, will review and personally interpreted the labs to rule out any acute life- threatening emergency the trach require immediate intervention and treatment. I will then re-evaluate the patient after treatment and diagnostic exams have return to determine whether the patient requires any further testing, can safely be discharged home or need further admission to hospital for additional treatment and evaluation. Labs reviewed CBC is with a normal limits BNP 7 is within normal limits troponins 1st set 7-UDS is negative for any recreational drugs. Chest x-ray showed COPD hyperinflation changes but no focal infiltrate or pneum othorax. I have updated the patient on available information so far with some repolarization changes on the EKG and answered all his questions. Patient is feeling significantly better. We will get 2nd set of cardiac enzymes and a repeat EKG 11:10 p.m. repeat EKG shows the same changes and no acute ST-T elevations. Second set of troponins are same 9 . We will discharge the patient to follow up with his primary care physician or return to the ER should he have any additional new symptoms. HEART Score Response (Comments) Value History: Low suspicion (0) 0 EKG: Repolarization changes 1 Age: 45-65yrs (+1) 1 Risk Factors: 1-2 risk factors (+1) 1 Initial Troponin: Normal limit (0) 0 HEART Score Risk: Low Risk for MACE (1-3) Total 3 Medical Decision Making MDM MDM: Differential diagnosis: Unstable angina, coronary spasm, pericarditis, esophagitis, atypical chest pain with chest wall pain Rationale: Tests considered and ordered secondary to shared decision making include: Previous outside records reviewed: Old ER visits. Risk of complication and/or morbidity or mortality of patient management: None Medications-Per medication reconciliation Need for hospitalization: Patient does not meet criteria for hospitalization. Need for emergency major/minor surgery: No There are no social concerns with this patient. Prescription drug management Prescriptions will include symptomatic care Patient's prior external medical records from other ER visits were reviewed by me as indicated. Prior testing and results from previous visits were reviewed. Prior tests were taken into account with medical decision making and resource utilization, independent historian/historians were used to obtain complete medical history. I independently interpreted the test that were performed, results were reviewed by me and considered findings on radiology if ordered. Medical management and examination interpretation discussions were had by me with other qualified healthcare professionals as indicated for the patient's care. Problem List Problem List: (1) Chest pain (2) History of gastroesophageal reflux (GERD) (3) Anxiety DX & DISP Disposition: Discharge Departure Impression: Primary Impression: Chest pain Additional Impressions: History of gastroesophageal reflux (GERD), Anxiety Condition: Stable Scripts Hydroxyzine HCl (Hydroxyzine HCl) 25 Mg Tablet 1 TAB PO BID for anxiety for 5 Days, #10 TAB 0 Refills Prov: NORY ELIAS MD 09/02/24 Additional Instructions: Patient and the caregiver have been informed of all the diagnostic tests and the imaging conducted during the today's visit to the emergency room and has verbalized understanding of the results I have personally reviewed and interpreted all diagnostic exams performed here in the ER today as well as the vital signs documented by the nursing staff. The patient is now being discharged to home and should follow up with the primary care physician or the specialist as directed by the ER staff. Follow-up with primary care provider in 1 to 2 days. Take medications as directed here in the emergency room. Okay to continue home medications unless otherwise discussed during your visit in the emergency room today. Return to your nearest emergency room if symptoms worsen or if there is no improvement. Call 911 if you need immediate assistance. Take Tylenol or Motrin [id number] as needed and if no contraindications are present. Increase oral hydration. A wound culture or urine culture was ordered here in the emergency room department please follow-up with primary care provider and advise them to get repeat ports from our facility. If you had any [place] wrap/splints that were applied here, please do not remove them until you see your primary care or specialty. Referrals: SELF,REFERRAL (PCP) NORY ELIAS MD Sep 02, 2024 20:02
[2024-09-02 20:12] LABS: POTASSIUM 3.6 mmol/L (3.5-5.1)
[2024-09-02 20:17] LABS: B-TYPE NATRIURETIC PEPTIDE 16 pg/mL (0-100)
--- NOTE | 2024-09-02 20:28 | HMCIMG ---
Exam Type: CHEST 1VW Clinical Information: chest pain Comparison: None Findings: The lungs are clear of infiltrates. The heart is normal in size. The bony and soft tissue structures of the chest are unremarkable. Impression: Clear lungs.
[2024-09-02] MEDS: ketOROlac 15MG/ML VIAL (15MG/ML) IV ONE (21:01)
[2024-09-02 21:42] LABS: AMPHET/METH SCREEN,URINE NEGATIVE (NEGATIVE); BARBITURATE SCREEN, URINE NEGATIVE (NEGATIVE); BENZODIAZEPINES SCREEN,URINE NEGATIVE (NEGATIVE); CANNABINOID SCREEN,URINE NEGATIVE (NEGATIVE); COCAINE SCREEN,URINE NEGATIVE (NEGATIVE); OPIATE SCREEN,URINE NEGATIVE (NEGATIVE); PHENCYCLIDINE SCREEN,URINE NEGATIVE (NEGATIVE)
[2024-09-02] MEDS ORDERED: HYDR-3421 PO (23:14)
[2024-09-02 23:24] VITALS: BP 113/62; PULSE 71; RESP 16; TEMP 98.8; O2SAT 98
--- NOTE | 2024-09-03 06:44 | EKG ---
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
--- NOTE | 2024-09-03 06:44 | EKG ---
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
== END 2024-09-02 23:25 | disposition home or self-care (01) ==
LOC: EDH 19:31
DX: R07.89 Other chest pain (principal); F41.9 Anxiety disorder, unspecified; F17.200 Nicotine dependence, unspecified, uncomplicated; K21.9 Gastro-esophageal reflux disease without esophagitis; Z79.1 Long term (current) use of non-steroidal anti-inflammatories (NSAID); Z79.899 Other long term (current) drug therapy; Z87.19 Personal history of other diseases of the digestive system
CPT/HCPCS: 99284; 96374; 71045; 82550; 84484 ×2; 80048; 83880; 80305; 85025; 36415; 93005 ×2; J1885

== ENCOUNTER 2024-11-28 20:39 | Emergency (ER) | payer BC ==
[~2024-11-28] VITALS: Ht 162.6 cm; Wt 54.4 kg
[~2024-11-28 20:39] MED LIST changes: +HYDR-3421 PO; +IBUP-1492 PO; -IBUP-2070 PO
--- NOTE | 2024-11-28 20:49 | NUR ---
CALLED FOR EVALUATION BY LUISITO PEARL NP , NO ANSWER
--- NOTE | 2024-11-28 20:55 | NUR ---
PT CARE ASSUMED AT THIS TIME
--- NOTE | 2024-11-28 21:12 | ERN ---
ED Note History of Present Illness Stated Complaint: LIGHTHEADED, BODY FEELS HOT Chief Complaint: Multiple Complaints Time Seen by MD: 20:46 Dictation: PATIENT IS A 44-YEAR-OLD MALE COMING IN TODAY STATES HE JUST DROVE IN FROM [facility] AFTER VISITING FAMILY HE SAID WHEN HE WAS IN [place], HE STARTED FEELING LIGHTHEADED WITH A HEADACHE AND A LITTLE BIT NAUSEA. NO VOMITING NO NEUROLOGIC CHANGES NO SPEECH CHANGES STATES THEY DROVE HOME TO [facility]. HE HAS NOT TAKEN ANYTHING FOR HIS HEADACHE. NIH IS 0. CURRENTLY STATES HE JUST FEELS LIGHTHEADED WITH A HEADACHE AND FEELS WARM HOWEVER THERE WAS NO FEVER NO CHILLS. FEBRILE IN TRIAGE. Allergies: Coded Allergies: No Known Drug Allergies (Unverified Allergy, Unknown, 10/19/20) Home Meds Active Scripts Hydroxyzine HCl (Hydroxyzine HCl) 25 Mg Tablet, 1 TAB PO BID for anxiety for 5 Days, #10 TAB 0 Refills Prov:NORY ELIAS MD 09/02/24 Meclizine HCl (Meclizine HCl) 25 Mg Tablet, 25 MG PO TID for vertigo, #30 TAB 0 Refills Prov:ALEXIS FREITAS NP 04/12/24 Hydroxyzine Pamoate (Hydroxyzine Pamoate) 50 Mg Capsule, 50 MG PO QIDP PRN for ANXIETY/AGITATION, #40 CAP 2 Refills Prov:SHERWIN WANG Sr., MD 05/07/23 Ibuprofen (Ibuprofen) 600 Mg Tablet, 600 MG PO Q6H PRN for PAIN, #30 TAB Prov:MARY BRITO MD 07/21/22 Cephalexin Monohydrate (Keflex) 250 Mg Cap, 250 MG PO BID for 7 Days, #14 CAP 0 Refills Prov:VITO LEAL MD 11/27/20 Metoclopramide HCl (Reglan) 10 Mg Tablet, 10 MG PO TIDP, #20 TAB 0 Refills Prov:VITO LEAL MD 10/20/20 Meloxicam (Mobic) 7.5 Mg Tablet, 7.5 MG PO DAILY, #10 TAB 0 Refills Prov:VITO LEAL MD 10/20/20 Cyclobenzaprine HCl (Cyclobenzaprine HCl) 10 Mg Tablet, 10 MG PO TIDP, #20 TAB 0 Refills Prov:VITO LEAL MD 10/20/20 Reported Medications Omeprazole (Omeprazole) 20 Mg Capsule., 20 MG PO DAILY, CAP 10/19/20 Past Medical History Past Medical History: Anxiety Additional Past Medical Hx: GASTRITIS, HEART MURMUR A CHILD Surgical History: Other Surgical History Other: NASAL SURGERY A CHILD 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 13 POINT REVIEW OF SYSTEMS ASSESSED AND ALL NEGATIVE EXCEPT FOR ABOVE. Initial Vital Sign VS Vital Signs Date Time Temp Pulse Resp B/P (MAP) Pulse Ox O2 Delivery O2 Flow Rate FiO2 11/28/24 20:40 98.2 85 18 152/90 100 Room Air 11/28/24 21:33 0 21 Physical Exam Dictation VITAL SIGNS REVIEWED GENERAL APPEARANCE: ALERT, ORIENTED X 3, NO ACUTE DISTRESS, WELL DEVELOPED, NOURISHED. HEAD AND FACE: NON-TRAUMATIC. EYES: PERRL, PINK CONJUNCTIVAS, EYELID NO TRAUMA, ANTERIOR CHAMBER WITH ARCUS SENILIS. EARS: PINNAS INTACT AND NO SIGNS OF TRAUMA OR ERYTHEMA EAR CANALS CLEAR AND NO DISCHARGE TM NO ERYTHEMA NOSE: NO DISCHARGE, NO BLEEDING. OROPHARYNX: MOUTH NORMAL, TONGUE PINK, PHARYNX CLEAR,NO ERYTHEMA, TONSILS NO EXUDATES, NO ABSCESSES NOTED, MUCOUS MEMBRANE MOIST NECK: SUPPLE, NON-TENDER, NO THYROMEGALY, NO MASSES, NO JVD, NO BRUITS BREAST:DEFERRED CHEST:NO TENDERNESS, NO CREPITUS, NO PARADOXICAL MOVEMENT, NO RETRACTIONS LUNGS:CLEAR, WELL-VENTILATED, SYMMETRIC, NO RALES, NO WHEEZING, NO RHONCHI, NO STRIDOR, GOOD BREATH SOUNDS BILATERALLY HEART: REGULAR RATE, REGULAR RHYTHM, NO MURMUR, NO GALLOPS VASCULAR: NO PERIPHERAL EDEMA, ABDOMEN: SOFT, POSITIVE BOWEL SOUNDS, NONDISTENDED, NO GUARDING, NONTENDER, NO REBOUND, NO MASSES NO HEPATOMEGALY, NO SPLENOMEGALY, NO JAMES'S SIGN, NO HERNIAS. RECTAL: DEFERRED GENITAL: DEFERRED NEUROLOGICAL: NORMAL SPEECH, MOTOR FUNCTION INTACT, SENSORY FUNCTION INTACT NIH IS 0 MUSCULOSKELETAL: NECK NONTENDER, FULL RANGE OF MOTION, BACK NONTENDER, FULL RANGE OF MOTION, EXTREMITIES: NONTENDER, FULL RANGE OF MOTION SKIN: COLOR PINK, DRY, NO TURGOR, NO RASH, NO LACERATIONS, NO ABRASIONS, NO CONTUSIONS. LYMPHATIC: DEFERRED Results (Laboratory/Radiology) Laboratory/Radiology Laboratory Tests Test 11/28/24 21:23 White Blood Count 8.2 K/uL (4.8-10.8) Red Blood Count 4.48 MIL/uL (4.50-6.20) L Hemoglobin 13.6 g/dL (14.0-18.0) L Hematocrit 39.9 % (42-54) L Mean Corpuscular Volume 89.1 fL (79-99) Mean Corpuscular Hemoglobin 30.4 pg (27.0-33.0) Mean Corpuscular Hemoglobin Concent 34.1 g/dL (32.0-36.0) Red Cell Distribution Width 12.4 % (11.0-15.5) Platelet Count 349 K/uL (130-400) Mean Platelet Volume 8.3 fL (7.5-10.5) Immature Granulocyte % (Auto) 0.2 % (0-1) Neutrophils (%) (Auto) 69.1 % (40.0-77.0) Lymphocytes (%) (Auto) 22.5 % (21.0-51.0) Monocytes (%) (Auto) 6.3 % (3.0-13.0) Eosinophils (%) (Auto) 1.3 % (0.0-8.0) Basophils (%) (Auto) 0.6 % (0.0-5.0) Neutrophils # (Auto) 5.7 K/uL (1.8-7.7) Lymphocytes # (Auto) 1.9 K/uL (1.0-4.8) Monocytes # (Auto) 0.5 K/uL (0.1-1.0) Eosinophils # (Auto) 0.11 K/uL (0.00-0.70) Basophils # (Auto) 0.05 K/uL (0.00-0.20) Absolute Immature Granulocyte (auto 0.02 K/uL (0-1) Nucleated Red Blood Cells 0.0 % (0.0-0.19) Sodium Level 137 mmol/L (136-145) Potassium Level 3.5 mmol/L (3.5-5.1) Chloride Level 98 mmol/L (101-111) L Carbon Dioxide Level 30 mmol/L (21-32) Blood Urea Nitrogen 13 mg/dL (7-18) Creatinine 0.8 mg/dL (0.5-1.3) Glomerular Filtration Rate Calc 111 mL/min (>90) Random Glucose 105 mg/dL (70-105) Total Calcium 8.4 mg/dL (8.5-10.1) L Troponin I High Sensitivity 7 ng/L (4-75) Labs Reviewed?: Yes EKG Comment: EKG SINUS RHYTHM/HEART RATE 69/AXIS NORMAL/EARLY REPOLARIZATION SEEN IN LEADS V3 FOUR AND FIVE. ED Course ED Course Orders Procedure Category Date Status Time Acetaminophen 500mg PHA 11/28/24 Complete Tab (Tylenol 500mg T 21:30 Cbc With Differential LAB 11/28/24 Complete 21:10 Troponin I High LAB 11/28/24 Complete Sensitivity 21:10 12 Lead Ekg Tracing- EKG 11/28/24 Complete Technical 21:10 Basic Metabolic Panel LAB 11/28/24 Complete 21:10 Current Medications Medications (Trade) Dose Ordered Sig/Monica Route PRN Reason Start Time Stop Time Status Last Admin Dose Admin Acetaminophen (TYLenol 500MG TAB) 1,000 mg ONCE ONCE PO 11/28/24 21:30 11/28/24 21:31 DC 11/28/24 21:36 Vital Signs Date Time Temp Pulse Resp B/P (MAP) Pulse Ox O2 Delivery O2 Flow Rate FiO2 11/28/24 21:33 98.2 80 16 150/85 100 Room Air* 0 21 11/28/24 20:40 98.2 85 18 152/90 100 Room Air 2255/PATIENT ALERT AND ORIENTED X4 SPEECH IS CLEAR. STATES HE HAS NO HEADACHE AT THIS TIME. HE IS AWARE THAT HE IS ONLY MILDLY DEHYDRATED REMAINDER OF WORKUP IS UNREMARKABLE AND GO SEE HIS PRIMARY CARE DOCTOR FOR MANAGEMENT. HEART Score Response (Comments) Value EKG: Repolarization changes 1 Age: 45-65yrs (+1) 1 Risk Factors: No known risk factors (0) 0 Initial Troponin: Normal limit (0) 0 Total 2 Medical Decision Making MDM MEDICAL DISCHARGE MAKING BASED ON EKG AND BASIC LABS EKG NO ST SEGMENT CHANGES. TROPONIN NEGATIVE MILD DEHYDRATION ON LABS PATIENT DISCHARGED HOME TO FOLLOW UP WITH HIS DOCTOR IN THE NEXT 1-2 DAYS. DX & DISP Disposition: Discharge Departure Impression: Primary Impression: Headache Additional Impressions: Mild dehydration, Anxiety Condition: Stable Additional Instructions: FOLLOW-UP WITH PRIMARY CARE PROVIDER IN 1 TO 2 DAYS. TAKE MEDICATIONS DIRECTED HERE IN THE EMERGENCY ROOM. OKAY TO CONTINUE HOME MEDICATIONS UNLESS OTHERWISE DISCUSSED DURING YOUR VISIT IN THE EMERGENCY ROOM TODAY. RETURN TO YOUR NEAREST EMERGENCY ROOM IF SYMPTOMS WORSEN OR IF THERE IS NO IMPROVEMENT. CALL 911 IF YOU NEED IMMEDIATE ASSISTANCE. TAKE TYLENOL OR MOTRIN [id number] NEEDED AND IF NO CONTRAINDICATIONS ARE PRESENT. INCREASE ORAL HYDRATION. A WOUND CULTURE OR URINE CULTURE WAS ORDERED HERE IN THE EMERGENCY ROOM DEPARTMENT PLEASE FOLLOW-UP WITH PRIMARY CARE PROVIDER AND ADVISE THEM TO GET REPEAT PORTS FROM OUR FACILITY. IF YOU HAD ANY DEEPTHI WRAP/SPLINTS THAT WERE APPLIED HERE, PLEASE DO NOT REMOVE THEM UNTIL YOU SEE YOUR PRIMARY CARE OR SPECIALTY. INCREASE YOUR WATER INTAKE. , SEE YOUR PRIMARY CARE DOCTOR FOR FOLLOW UP AND MANAGEMENT TOMORROW. Referrals: KATIE FERNANDEZ DO (PCP) Time of Disposition: 22:59 I have reviewed the case, and I agree with, Diagnosis and Plan LUISITO PEARL NP Nov 28, 2024 21:12
--- NOTE | 2024-11-28 21:20 | EKG ---
[facility] Test Date: 2024-11-28 Test Time: 21:13:51 Pat Name: ROBB RODRIGUEZ Department: [facility] Room: Gender: M Services Host: [id number] : 1980 Requested By: LUISITO PEARL Order Number: [id number] Reading MD: Idalia Hartley Measurements Intervals [place] Rate: 69 P: 63 [place]: 150 QRS: 80 QRSD: 83 T: 68 QT: 394 QTc: 422 Interpretive Statements Sinus rhythm ST elev, probable normal early repol pattern Compared to ECG 09/02/2024 22:02:42 No significant changes Electronically Signed On 11-29-2024 12:33:49 CDT by Idalia Hartley Please click the below link to view image of tracing.
[2024-11-28 21:30] LABS: IMMATURE GRANULOCYTE ABSOLUTE 0.02 K/uL (0-1); NUCLEATED RED BLOOD CELLS 0.0 % (0.0-0.19); PLATELET COUNT (AUTO) 349 K/uL (130-400); RED BLOOD CELL COUNT(AUTO) 4.48 MIL/uL (4.50-6.20); RED CELL DISTRIBUTION WIDTH 12.4 % (11.0-15.5); WHITE BLOOD COUNT (AUTO) 8.2 K/uL (4.8-10.8)
[2024-11-28 21:38] LABS: CREATININE 0.8 mg/dL (0.5-1.3); GLOMERULAR FILTR. RATE CALC 111.0 mL/min (>90); GLUCOSE,RANDOM 105.0 mg/dL (70-105); SODIUM SERUM 137.0 mmol/L (136-145); UREA NITROGEN, BLOOD 13.0 mg/dL (7-18)
[2024-11-28 23:04] VITALS: BP 120/81; PULSE 75; RESP 16; TEMP 98.3; O2SAT 100
== END 2024-11-28 23:06 | disposition home or self-care (01) ==
LOC: EDH 20:39
DX: R51.9 Headache, unspecified (principal); E86.0 Dehydration; F41.9 Anxiety disorder, unspecified; F17.200 Nicotine dependence, unspecified, uncomplicated; Z79.1 Long term (current) use of non-steroidal anti-inflammatories (NSAID); Z79.899 Other long term (current) drug therapy
CPT/HCPCS: 36415; 80048; 84484; 85025; 93005; 99284